=== PATIENT | female | born 1975 | race African-American/Black ===

== ENCOUNTER 2017-04-06 22:13 | Emergency (ER) | payer OTHER ==
[~2017-04-06] VITALS: Ht 165.1 cm; Wt 49.9 kg
[~2017-04-06 22:13] MED LIST: BENTYL10 MG ORAL
[2017-04-06] MEDS ORDERED: LD2JL30 TOPIC (22:40)
[2017-04-06] MEDS ORDERED: ANUSOL-HC25 MG RECTAL (22:40)
--- NOTE | 2017-04-06 22:41 | Emergency Room Report ---
History of Present Illness General Chief Complaint: General Complaint Source: Patient Present Illness HPI Is a 40-year-old female with a history of hemorrhoid. This is a lifelong problem for her. In the last week or so his been painful. Worse when she wiped her having a bowel movement. No fever or chills but did notice some blood. Been using Preparation H without any problem. Pain is 8/10. No other complaint. No trauma. No anal sex. Allergies: Coded Allergies: ACETAMINOPHEN (Verified Allergy, Unknown, 03/04/16) CODEINE (Verified Allergy, Unknown, 03/04/16) HYDROCODONE (Verified Allergy, Unknown, 03/04/16) IBUPROFEN (Unverified Allergy, Unknown, 03/04/16) Patient History Past Medical History: see triage record, old chart reviewed Past Surgical History: other Pertinent Family History: none Social History: Reports: smoking Now: No Immunizations: other Reviewed Nursing Documentation: PMH: Agreed, PSxH: Agreed Nursing Documentation-PMH Past Medical History: No Stated History Hx Cardiac Problems: No Hx Hypertension: No Hx Pacemaker: No Review of Systems Eye: Denies: blurred vision, eye pain ENT: Denies: ear pain, nose congestion, throat swelling Respiratory: Denies: cough, shortness of breath Cardiovascular: Denies: chest pain, palpitations Gastrointestinal: Denies: abdominal pain, diarrhea, nausea, vomiting Musculoskeletal: Denies: back pain, joint pain Skin: Denies: rash Neurological: Denies: headache, numbness Endocrine: Denies: increased thirst, increased urine Hematologic/Lymphatic: Denies: easy bruising All Other Systems: negative except mentioned in HPI Physical Exam Vital Signs Date Time Temp Pulse Resp B/P Pulse Ox O2 Delivery O2 Flow Rate FiO2 04/06/17 22:26 98.1 68 16 110/70 98 Room Air vitals normal Sp02 EP Interpretation: reviewed, normal General Appearance: well appearing, no apparent distress, alert Head: normocephalic, atraumatic Eyes: bilateral eye EOMI, bilateral eye PERRL ENT: hearing grossly normal, normal pharynx Neck: full range of motion, supple, no meningismus Respiratory: chest non-tender, lungs clear, normal breath sounds Cardiovascular #1: regular rate, rhythm, no murmur Gastrointestinal: normal bowel sounds, non tender, no mass, no organomegaly, no bruit, non-distended Rectal: other - External hemorrhoids. No thrombosis. She has a large fissure at the 3:00 position. Musculoskeletal: back normal, gait/station normal, normal range of motion Neurologic: alert, oriented x3 Psychiatric: mood/affect normal Skin: warm/dry Medical Decision Making Diagnostic Impression: Primary Impression: Anal fissure Additional Impression: Hemorrhoid Qualified Codes: K64.9 - Unspecified hemorrhoids ER Course Patient with hemorrhoid and fissure. No evidence of thrombosis. No evidence of infection. Will discharge home. Last Vital Signs Date Time Temp Pulse Resp B/P Pulse Ox O2 Delivery O2 Flow Rate FiO2 04/06/17 22:26 98.1 68 16 110/70 98 Room Air Status: improved Disposition: HOME, SELF-CARE Condition: Stable Scripts Hydrocortisone Acetate* (ANUSOL-HC*) 25 Mg Supp.rect 1 SUPP RECTAL TWICE A DAY, #10 SUPP Prov: LYNDA LUBIN M.D. 04/06/17 Lidocaine HCL 2% Jelly* (Lidocaine Jelly 2%*) 5 Ml Jel.[id number].[id number] 5 ML TOPIC DAILY, #15 ML Prov: LYNDA LUBIN M.D. 04/06/17 Additional Instructions: Followup your DrHollis in 3-5 days. You may benefit from referral to see a surgeon for hemorrhoid surgery. Return if symptom worsen. LYNDA LUBIN M.D. April 06, 2017 22:41
[2017-04-06] MEDS ORDERED: Lidocaine HCl 2% Jelly 5ml Tube TOPIC ONE (22:45)
[2017-04-06 22:46] VITALS: BP 114/72
[2017-04-06 22:47] VITALS: BP 114/72
== END 2017-04-06 22:47 | disposition home or self-care (01) ==
LOC: EMR 22:40
DX: K60.2 Anal fissure, unspecified (principal); K64.9 Unspecified hemorrhoids; F17.200 Nicotine dependence, unspecified, uncomplicated; Z88.6 Allergy status to analgesic agent; Z88.5 Allergy status to narcotic agent
CPT/HCPCS: 99284